=== PATIENT | male | born 1940 | race Caucasian/White ===

== ENCOUNTER → 2023-10-14 | Emergency (ER) | payer OTHER, BC ==
[2023-10-14 17:04] LABS: Specific Gravity 1.009 (1.005-1.030); Urine Bacteria None Seen /HPF (<20); Urine Bilirubin NEGATIVE (Negative); Urine Blood Negative (Negative); Urine Clarity Clear (Clear); Urine Color Light-Yellow (Yellow); Urine Glucose NEGATIVE (Negative); Urine Mucus Slight /HPF (None Seen); Urine Protein NEGATIVE (Negative); Urine RBC None Seen /HPF (None Seen); Urine Urobilinogen Normal (Normal); Urine pH 7.5 (5.0-7.0)
[2023-10-14 17:21] LABS: Magnesium 2.5 mg/dL (1.6-2.4); Potassium 3.9 mEq/L (3.5-5.1); Troponin High Sensitivity 7.4 pg/mL (<58.9)
[2023-10-14 17:23] LABS: Absolute Lymphocytes (CBC) 1.6 K/uL (0.7-4.9); Lymphocytes % 29.2 % (15.3-44.8); MCV 90.8 fL (80-100); MPV 8.6 fL (7.6-11.3); Platelets 217 thou/uL (152-406); RBC Red Blood Cell Count 4.73 M/uL (4.33-5.43)
--- NOTE | 2023-10-14 17:31 | ER ---
Nurse's Notes [facility] Name: Edmundo Carrasco Age: 83 yrs Sex: Male : 1940 Arrival Date: 10/14/2023 Time: 16:07 Bed 3 Private MD: Diagnosis: Hypertensive heart disease without heart failure Presentation: 10/14 16:21 Chief complaint: Patient states: high blood pressure today, took bp meds and even took ko1 an extra dose. Has an appt with Cardiology for nuclear stress test on . Coronavirus screen: At this time, the client does not indicate any symptoms associated with coronavirus-19. Ebola Screen: No symptoms or risks identified at this time. Initial Sepsis Screen: Does the patient meet any 2 criteria? No. Patient's initial sepsis screen is negative. Does the patient have a suspected source of infection? No. Patient's initial sepsis screen is negative. Risk Assessment: Do you want to hurt yourself or someone else? Patient reports no desire to harm self or others. Onset of symptoms was October 14, 2023. 16:21 Method Of Arrival: Ambulatory ko1 16:21 Acuity: JENNIFER 3 ko1 Triage Assessment: 16:25 General: Appears in no apparent distress. comfortable, Behavior is calm, cooperative, ko1 appropriate for age. Pain: Denies pain. 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 - Social history:: Smoking status: Patient denies any tobacco usage or history of. Screenin:[address] [facility] ED Fall Risk Assessment (Adult) History of falling in the last 3 months, kc6 including since admission No falls in past 3 months (0 pts) Confusion or Disorientation No (0 pts) Intoxicated or Sedated No (0 pts) Impaired Gait No (0 pts) Mobility Assist Device Used No (0 pt) Altered Elimination No (0 pt) Score/Fall Risk Level 0 - 2 = Low Risk. Abuse screen: Denies threats or abuse. Denies injuries from another. Nutritional screening: No deficits noted. Tuberculosis screening: No symptoms or risk factors identified. Assessment: 16:57 General: Appears in no apparent distress. comfortable, well groomed, well developed, kc6 Behavior is calm, cooperative, appropriate for age. Pain: Denies pain. Neuro: Level of Consciousness is awake, alert, obeys commands, Oriented to person, place, time, situation, Appropriate for age. Cardiovascular: Denies chest pain, Heart tones S1 S2 present Capillary refill < 3 seconds Rhythm is junctional rhythm with unifocal PVCs. Respiratory: Airway is patent Trachea midline Respiratory effort is even, unlabored, Respiratory pattern is regular, symmetrical, Denies shortness of breath. GI: No signs and/or symptoms were reported involving the gastrointestinal system. : No signs and/or symptoms were reported regarding the genitourinary system. EENT: No signs and/or symptoms were reported regarding the EENT system. Derm: No signs and/or symptoms reported regarding the dermatologic system. Skin is intact, is healthy with good turgor, Skin is pink, warm \T\ dry. Musculoskeletal: No signs and/or symptoms reported regarding the musculoskeletal system. Circulation, motion, and sensation intact. Capillary refill < 3 seconds, Range of motion: intact in all extremities. Vital Signs: 16:21 BP 174 / 85; Pulse 86; Resp 18; Temp 97; Pulse Ox 99% ; ko1 16:58 BP 144 / 77; Pulse 68; Resp 16 S; Pulse Ox 99% on R/A; kc6 Vitals: 16:58 Cardiac Rhythm Assessment Junctional rhythm W/unifocal PVC's. kc6 ED Course: 16:10 Patient arrived in ED. rg4 16:16 Yonis Pelaez PA is [facility]. cp 16:16 Yonis Garsia MD is Attending Physician. cp 16:25 Triage completed. ko1 16:25 Arm band placed on right wrist. Patient placed in an exam room, on a stretcher, on ko1 oxygen, on school lunch monitor, on pulse oximetry, Patient notified of wait time. 16:37 Naomi Jackson, DANISH is Primary Nurse. ph 16:57 Patient has correct armband on for positive identification. Placed in gown. Bed in low kc6 position. Call light in reach. Side rails up X 1. Adult w/ patient. Client placed on continuous cardiac and pulse oximetry monitoring. NIBP monitoring applied. ekg monitor tech on. 16:57 Inserted saline lock: 20 gauge in right antecubital area, using aseptic technique. kc6 Blood collected. Patient maintains SpO2 saturation greater than 95% on room air. 17:45 No provider procedures requiring assistance completed. IV discontinued, intact, ph bleeding controlled, No redness/swelling at site. Pressure dressing applied. Administered Medications: No medications were administered Medication: 17:31 VIS not applicable for this client. ph Outcome: 17:31 Discharge ordered by MD. cp 17:45 Discharged to home ambulatory, with significant other, ph 17:45 Condition: good 17:45 Discharge instructions given to patient, significant other, Instructed on discharge instructions, follow up and referral plans. medication usage, Demonstrated understanding of instructions, follow-up care, medications, Prescriptions given X 1, 17:46 Patient left the ED. ph Signatures: Naomi Jackson RN RN ph Yonis Pelaez PA PA cp Garcia, Rubi rg4 Ruby Kim RN RN kc6 Prisca Stover RN RN ko1 Corrections: (The following items were deleted from the chart) 16:28 16:21 Chief complaint: Patient states: high blood pressure today, took bp meds and even ko1 took an extra dose. Has an appt with Cardiology at [place] for nuclear stress test on . ko1
--- NOTE | 2023-10-14 17:31 | EDPHYS ---
Physician Documentation [facility] Name: Edmundo Carrasco Age: 83 yrs Sex: Male : 1940 Arrival Date: 10/14/2023 Time: 16:07 Bed 3 Private MD: ED Physician Yonis Garsia HPI: 10/14 16:30 This 83 yrs old Male presents to ER via Ambulatory with complaints of High Blood cp Pressure. 16:30 The patient has elevated blood pressure and discovered this at home, with a home device.cp 16:30 Onset: The symptoms/episode began/occurred today. cp 16:30 Associated signs and symptoms: Pertinent negatives: chest pain, dizziness, headache, cp lightheadedness, vomiting, weakness. 16:30 Severity of symptoms: At its worst the blood pressure was 190 mm Hg. cp 16:30 Patient reports past prescribed blood pressure medications were stopped due to blood cp pressure becoming too lw. Recently started on Lisinopril 10 mg daily. Took another tablet of 10 mg before coming to ED today. 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 - Social history:: Smoking status: Patient denies any tobacco usage or history of. ROS: 16:35 Constitutional: Negative for body aches, chills, fever, poor PO intake, cp 16:35 Eyes: Negative for injury, pain, redness, and discharge, cp 16:35 ENT: Negative for drainage from ear(s), ear pain, sore throat, difficulty swallowing, difficulty handling secretions, 16:35 Cardiovascular: Negative for chest pain, edema, palpitations, 16:35 Respiratory: Negative for cough, shortness of breath, wheezing, 16:35 Abdomen/GI: Negative for abdominal pain, vomiting, diarrhea, constipation, black/tarry stool, rectal bleeding, 16:35 : Negative for urinary symptoms, 16:35 Neuro: Negative for altered mental status, dizziness, headache, numbness, syncope, tingling, weakness, 16:35 All other systems are negative, Exam: 16:40 Constitutional: The patient appears in no acute distress, alert, awake, comfortable, cp non-diaphoretic, non-toxic, well developed, well nourished, obese, 16:40 Head/Face: Normocephalic, atraumatic. cp 16:40 Eyes: Periorbital structures: appear normal, Conjunctiva: normal, no exudate, no injection, Sclera: no appreciated abnormality, Lids and lashes: appear normal, bilaterally, 16:40 ENT: External ear(s): are unremarkable, Nose: is normal, Mouth: Lips: moist, Oral mucosa: pink and intact, moist, Posterior pharynx: is normal, airway is patent, no erythema, no exudate, 16:40 Neck: ROM/movement: is normal, is supple, without pain, no range of motions limitations, 16:40 Chest/axilla: Inspection: normal, Palpation: is normal, no crepitus, no tenderness, 16:40 Cardiovascular: Rate: normal, Rhythm: regular, Edema: is not appreciated, JVD: is not appreciated, 16:40 Respiratory: the patient does not display signs of respiratory distress, Respirations: normal, no use of accessory muscles, no retractions, labored breathing, is not present, Breath sounds: are clear throughout, no decreased breath sounds, no stridor, no wheezing, 16:40 Abdomen/GI: Inspection: obese Bowel sounds: active, all quadrants, Palpation: abdomen is soft and non-tender, in all quadrants, 16:40 Back: pain, is absent, ROM is normal, 16:40 Neuro: Orientation: to person, place \T\ time. Mentation: is normal, Cerebellar function: is grossly normal, Motor: moves all fours, strength is normal, Sensation: is normal, Gait: is steady, at a normal pace, without difficulty, 16:50 ECG was reviewed by the Attending Physician. cp Vital Signs: 16:21 BP 174 / 85; Pulse 86; Resp 18; Temp 97; Pulse Ox 99% ; ko1 16:58 BP 144 / 77; Pulse 68; Resp 16 S; Pulse Ox 99% on R/A; kc6 MDM: 16:29 Patient medically screened. dunia 17:30 Data reviewed: vital signs, nurses notes, lab test result(s), EKG, and as a result, I will discharge patient. 17:30 Differential diagnosis: hypertensive crisis, Malignant HTN, CVA, intracerebral cp hemorrhage, acute MD. Counseling: I had a detailed discussion with the patient and/or guardian regarding the historical points, exam findings, and any diagnostic results supporting the discharge/admit diagnosis, lab results, the need for outpatient follow up, for definitive care, a commissary officer, a family practitioner, to return to the emergency department if symptoms worsen or persist or if there are any questions or concerns that arise at home. 10/14 16:31 Order name: Basic Metabolic Panel; Complete Time: 17:26 cp 10/14 17:26 Interpretation: Normal except: CL 108; GLUC 108; GFR 65. cp 10/14 16:31 Order name: CBC with Diff; Complete Time: 17:26 cp 10/14 17:27 Interpretation: Reviewed. cp 10/14 16:31 Order name: Magnesium; Complete Time: 17:26 cp 10/14 17:26 Interpretation: Reviewed. cp 10/14 16:31 Order name: Troponin HS; Complete Time: 17:26 cp 10/14 17:27 Interpretation: Reviewed. cp 10/14 16:31 Order name: Urinalysis W/Microscopic; Complete Time: 17:26 cp 10/14 17:27 Interpretation: Normal except: UPH 7.5. cp 02 16:31 Order name: EKG; Complete Time: 16:31 cp 10/14 16:31 Order name: Cardiac monitoring; Complete Time: 16:56 cp 10/14 16:31 Order name: EKG - Nurse/Tech; Complete Time: 16:56 cp 10/14 16:31 Order name: IV Saline Lock; Complete Time: 16:56 cp 10/14 16:31 Order name: Labs collected and sent; Complete Time: 16:57 cp 10/14 16:31 Order name: O2 Per Protocol; Complete Time: 16:57 cp 10/14 16:31 Order name: O2 Sat Monitoring; Complete Time: 16:57 cp EC:50 Rate is 72 beats/min. Rhythm is regular. QRS interval is normal. QT interval is normal. cp T waves are Inverted in leads III, aVR. Interpreted by me. Reviewed by me. Administered Medications: No medications were administered Disposition Summary: 10/14/23 17:31 Discharge Ordered Notes: Location: Home cp Problem: chronic cp Symptoms: have improved cp Condition: Stable cp Diagnosis - Hypertensive heart disease without heart failure cp Followup: cp - With: Private Physician - When: 1 week - Reason: Recheck today's complaints Discharge Instructions: - Discharge Summary Sheet cp - Hypertension, Adult cp - Aspirin and Your Heart cp - Form - Blood Pressure Record Sheet cp - How to Take Your Blood Pressure cp Forms: - Medication Reconciliation Form cp - Thank You Letter cp - Antibiotic Education cp - Prescription Opioid Use cp - Patient Portal Instructions cp - Leadership Thank You Letter cp Prescriptions: - Lisinopril 20 mg Oral tablet - take 1 tablet ORAL route once daily; 30 tablet; Refills: 0, Product Selection cp Permitted Signatures: Dispatcher [employer] EDYonis Henderson MD MD cha Page, Corey, PA PA Prisca Diaz, RN RN ko1
[2023-10-15 10:54] VITALS: BP 144/77; TEMP 97; O2SAT 99
--- NOTE | 2023-10-15 12:56 | EKG ---
Test Date: 2023-10-14 Test Time: 16:46:59 Learning Officer: FRITZ MEASUREMENT RESULTS: Intervals: Rate: 72 NC: QRSD: 80 QT: 392 QTc: 429 Joshua: P: NC: QRS: 0 T: -10 INTERPRETIVE STATEMENTS: Accelerated Junctional rhythm Abnormal ECG Compared to ECG 09/10/2023 17:37:03 Accelerated junctional rhythm now present Sinus rhythm no longer present Electronically Signed On 10-15-23 12:52:46 [employer] by Jerald Oneil
== END ==
LOC: ER 16:07
DX: I11.9 Hypertensive heart disease without heart failure (principal); Z95.818 Presence of other cardiac implants and grafts
CPT/HCPCS: 36415; 80048; 81001; 83735; 84484; 85025; 93005

== ENCOUNTER → 2023-10-21 | Emergency (ER) | payer OTHER, BC ==
[~2023-10-21] MED LIST: CEFTRIAXONE 1000 MG/VIAL ONE; NA CHLORIDE 0.9% 50 ML ONE
[2023-10-21 08:37] LABS: Absolute Lymphocytes (CBC) 0.8 K/uL (0.7-4.9); Hematocrit 44.9 % (39.6-49.0); Lymphocytes % 14.2 % (15.3-44.8); MCV 91.1 fL (80-100); Platelets 212 thou/uL (152-406); RBC Red Blood Cell Count 4.93 M/uL (4.33-5.43)
[2023-10-21 08:43] LABS: Protime INR 1.13
[2023-10-21 08:56] LABS: Albumin 2.8 g/dL (3.4-5.0); Potassium 3.7 mEq/L (3.5-5.1); Protein, Total 7.1 g/dL (6.4-8.2)
[2023-10-21 08:56] LABS: Urine Bacteria <20 /HPF (<20); Urine Mucus 1+ /HPF (None Seen); Urine RBC >50 /HPF (None Seen)
[2023-10-21 08:57] LABS: Specific Gravity 1.024 (1.005-1.030); Urine Bilirubin NEGATIVE (Negative); Urine Blood 3+ (Negative); Urine Clarity Turbid (Clear); Urine Color Yellow (Yellow); Urine Glucose NEGATIVE (Negative); Urine Protein 2+ (Negative); Urine Urobilinogen 1+ (Normal)
--- NOTE | 2023-10-21 09:39 | RAD REPORT ---
EXAM DESCRIPTION: CT - Abdomen Pelvis W Contrast - 10/21/2023 8:51 am CLINICAL HISTORY: HEMATURIA COMPARISON: No comparisons TECHNIQUE: Thin cut axial CT imaging of the abdomen and pelvis was performed following intravenous a dministration of 100 mL Isovue 300. Multiplanar reformats were generated and reviewed. All CT scans are performed using dose optimization technique as appropriate and may include automated exposure control or mA/KV adjustment according to patient size. FINDINGS: No suspicious findings in the lung bases. The liver demonstrates a 13 mm cyst near the hilum. Spleen, adrenal glands, and pancreas show no susp icious findings. Gallbladder shows layering mildly hyperdense material near the neck, may suggest slu dge or noncalcified calculi. Symmetric renal function is seen with no hydronephrosis or suspicious renal mass. Small calcification s at the left lower renal pole, suggesting calculi the largest measuring 5 mm. Some of these may repr esent parenchymal calcifications. No dilated bowel loops or bowel wall thickening. No free air, free fluid or inflammatory stranding. N o hernia, mass or bulky lymphadenopathy. Urinary bladder is decompressed limiting evaluation. Allowing for this, a degree of wall thickening, adventitial fat stranding, and mucosal hyperenhancement is seen throughout the bladder wall. Superior endplate compression deformity at L3 with moderate disc height loss, favored to be chronic. IMPRESSION: Although decompression of the urinary bladder limits evaluation, wall thickening, baptism itial fat stranding, mucosal hyperenhancement is not throughout the wall, concerning for ongoing cyst itis. Please correlate clinically. Nonobstructing small left lower renal calculi up to 5 mm, with additional foci of calcification which may be parenchymal. Gallbladder sludge versus noncalcified small stones accumulating dependently. Other incidental findings as above.
--- NOTE | 2023-10-21 09:48 | ER ---
Nurse's Notes [facility] Name: Edmundo Carrasco Age: 83 yrs Sex: Male : 1940 Arrival Date: 10/21/2023 Time: 08:13 Bed 4 Private MD: Diagnosis: Acute cystitis with hematuria;Calculus of kidney Presentation: 10/21 08:19 Chief complaint: Patient states: right flank pain x 3-4 days ago, hematuria today, hx aa5 of kidney stones. 08:19 Onset of symptoms was October 21, 2023. aa5 08:19 Acuity: JENNIFER 3 aa5 08:19 Method Of Arrival: Ambulatory aa5 08:19 Coronavirus screen: At this time, the client does not indicate any symptoms associated aa5 with coronavirus-19. Ebola Screen: Patient denies travel to an Ebola-affected area in the 21 days before illness onset. Initial Sepsis Screen: Does the patient meet any 2 criteria? No. Patient's initial sepsis screen is negative. Does the patient have a suspected source of infection? No. Patient's initial sepsis screen is negative. Risk Assessment: Do you want to hurt yourself or someone else? Patient reports no desire to harm self or others. Historical: - Allergies: 08:20 No Known Allergies; aa5 - PMHx: 08:20 DVT; Hypertension; PE; Kidney stones; aa5 - PSHx: 08:20 cardiac stents X 5; knee replacement - left; aa5 - Immunization history:: Adult Immunizations unknown. - Social history:: Smoking status: Patient denies any tobacco usage or history of. Screenin:35 [facility] ED Fall Risk Assessment (Adult) History of falling in the last 3 months, ph including since admission No falls in past 3 months (0 pts) Score/Fall Risk Level 0 - 2 = Low Risk Oriented to surroundings, Maintained a safe environment, Provided non-skid footwear, Hourly rounding (assess needs \T\ fall precautionary measures) done. Abuse screen: Denies threats or abuse. Denies injuries from another. Nutritional screening: No deficits noted. Tuberculosis screening: No symptoms or risk factors identified. Assessment: 08:33 General: Appears in no apparent distress. comfortable, Behavior is calm, cooperative, ph appropriate for age, Denies fever, feeling ill. Pain: Complains of pain in with urination. Neuro: Level of Consciousness is awake, alert, obeys commands, Oriented to person, place, time, situation. Cardiovascular: Capillary refill < 3 seconds in bilateral fingers Patient's skin is warm and dry. Respiratory: Airway is patent Respiratory effort is even, unlabored. GI: Abdomen is non-distended, Abd is soft and non tender X 4 quads. Reports. GI: Patient currently denies abdominal pain, nausea, vomiting. : Reports pain with urination, blood in urine. Derm: Skin is pink, warm \T\ dry. 09:55 Reassessment: D/C pending completion of IV antibiotics. ph Vital Signs: 08:19 BP 149 / 75; Pulse 80; Resp 16 S; Temp 97.8(O); Pulse Ox 98% on R/A; Weight 122.47 kg aa5 (R); Height 6 ft. 0 in. (R); 10:00 BP 138 / 78; Pulse 72; Resp 18; Temp 97.8; Pulse Ox 99% on R/A; ph 08:19 Body Mass Index 36.62 (122.47 kg, 182.88 cm) aa5 ED Course: 08:16 Patient arrived in ED. mg5 08:17 Ashtyn Oliva PA-C is PHCP. sb4 08:17 Gilson Williamson DO is Attending Physician. sb4 08:19 Naomi Jackson, RN is Primary Nurse. ph 08:19 Arm band placed on. aa5 08:29 Triage completed. aa5 08:31 Ptt, Activated Sent. ko1 08:31 PT-INR Sent. ko1 08:31 CBC with Diff Sent. ko1 08:31 CMP Sent. ko1 08:33 Initial lab(s) drawn, by nc, sent to lab. Inserted saline lock: 20 gauge in right ph antecubital area, using aseptic technique. Blood collected. 08:36 Patient has correct armband on for positive identification. Bed in low position. Call ph light in reach. Side rails up X2. Pulse ox on. NIBP on. Door closed. Noise minimized. Warm blanket given. 08:36 PT-INR Sent. ph 08:36 Ptt, Activated Sent. ph 08:36 CBC with Diff Sent. ph 08:36 CMP Sent. ph 08:53 CT Abd/Pelvis - IV Contrast Only In Process Unspecified. EDMS 09:47 Juan Aguayo MD is Referral Physician. sb4 Administered Medications: 09:55 Drug: Rocephin IV 1 grams IV at calculated rate once; Given slow IV push per pharmacy ph instructions Route: IV; Rate: calculated rate; Site: right antecubital; 10:23 Follow up: Response: No adverse reaction; IV Status: Completed infusion ph Medication: 08:35 VIS not applicable for this client. ph Outcome: 09:48 Discharge ordered by . sb4 10:24 Patient left the ED. ph Signatures: Dispatcher [employer] EDMT Isha Rodriguez RN RN aa5 Naomi Jackson RN RN ph Oliver, Kathy, RN RN ko1 Ashtyn Oliva, PA-C PA-C sb4 Latia Guzman mg5
--- NOTE | 2023-10-21 09:48 | EDPHYS ---
Physician Documentation [facility] Name: Edmundo Carrasco Age: 83 yrs Sex: Male : 1940 Arrival Date: 10/21/2023 Time: 08:13 Bed 4 Private MD: ED Physician Gilson Williamson HPI: 10/21 08:26 This 83 yrs old Male presents to ER via Unassigned with complaints of hematuria. sb4 08:26 The patient presents with urinary symptoms, hematuria, penile pain. Onset: The sb4 symptoms/episode began/occurred 3 day(s) ago. The patient has experienced a previous episode. right flank pain Saturday, resolved now. hematuria and penile pain began this morning. on blood thinners. history of kidney stones. Historical: - Allergies: 08:20 No Known Allergies; aa5 - PMHx: 08:20 DVT; Hypertension; PE; Kidney stones; aa5 - PSHx: 08:20 cardiac stents X 5; knee replacement - left; aa5 - Immunization history:: Adult Immunizations unknown. - Social history:: Smoking status: Patient denies any tobacco usage or history of. ROS: 08:26 Constitutional: Negative for fever, chills, and weight loss, sb4 08:26 : Positive for hematuria, penile pain, 08:26 All other systems are negative, Exam: 08:26 Constitutional: This is a well developed, well nourished patient who is awake, alert, sb4 and in no acute distress. Head/Face: Normocephalic, atraumatic. Eyes: Extra-ocular motions intact. Periorbital areas with no swelling, redness, or edema. ENT: Mucous membranes moist. Cardiovascular: Regular rate and rhythm with a normal S1 and S2. Respiratory: Lungs have equal breath sounds bilaterally, clear to auscultation and percussion. No rales, rhonchi or wheezes noted. No increased work of breathing, no retractions or nasal flaring. Abdomen/GI: Soft, non-tender, no distension. Skin: Warm, dry with normal turgor. Normal color with no rashes, no lesions, and no evidence of cellulitis. MS/ Extremity: Pulses equal, no cyanosis. Neurovascular intact. Full, normal range of motion. Vital Signs: 08:19 BP 149 / 75; Pulse 80; Resp 16 S; Temp 97.8(O); Pulse Ox 98% on R/A; Weight 122.47 kg aa5 (R); Height 6 ft. 0 in. (R); 10:00 BP 138 / 78; Pulse 72; Resp 18; Temp 97.8; Pulse Ox 99% on R/A; ph 08:19 Body Mass Index 36.62 (122.47 kg, 182.88 cm) aa5 MDM: 08:20 Patient medically screened. sb4 08:28 Differential diagnosis: UTI, prostatitis, urethritis, nephrolithiasis. sb4 09:46 Data reviewed: vital signs, nurses notes, lab test result(s), radiologic studies, and sb4 as a result, I will discharge patient. Historians other than the Patient: Spouse/Significant Other: . Care significantly affected by the following chronic conditions: Hypertension. Counseling: I had a detailed discussion with the patient and/or guardian regarding the historical points, exam findings, and any diagnostic results supporting the discharge/admit diagnosis, lab results, radiology results, the need for outpatient follow up, a urologist, to return to the emergency department if symptoms worsen or persist or if there are any questions or concerns that arise at home. 10/21 08:20 Order name: UAM; Complete Time: 09:10 sb4 10/21 08:26 Order name: CBC with Diff; Complete Time: 08:39 sb4 10/21 08:26 Order name: CMP; Complete Time: 08:56 sb4 10/21 08:26 Order name: PT-INR; Complete Time: 08:44 sb4 10/21 08:26 Order name: Ptt, Activated; Complete Time: 08:44 sb4 10/21 09:07 Order name: Urine Culture EDMS 10/21 08:26 Order name: CT Abd/Pelvis - IV Contrast Only; Complete Time: 09:43 sb4 10/21 08:26 Order name: IV Saline Lock; Complete Time: 08:31 sb4 10/21 08:26 Order name: Labs collected and sent; Complete Time: 08:31 sb4 Administered Medications: 09:55 Drug: Rocephin IV 1 grams IV at calculated rate once; Given slow IV push per pharmacy ph instructions Route: IV; Rate: calculated rate; Site: right antecubital; 10:23 Follow up: Response: No adverse reaction; IV Status: Completed infusion ph Disposition: 16:56 I was immediately available on-site in the Emergency Department for consultation in the ms3 care of the patient. Disposition Summary: 10/21/23 09:48 Discharge Ordered Notes: Location: Home sb4 Problem: new sb4 Symptoms: are unchanged sb4 Condition: Stable sb4 Diagnosis - Acute cystitis with hematuria sb4 - Calculus of kidney sb4 Followup: sb4 - With: Juan Aguayo MD - When: 1 week - Reason: Recheck today's complaints, Re-evaluation by your physician Discharge Instructions: - Discharge Summary Sheet sb4 - Urinary Tract Infection, Adult sb4 - Kidney Stones, [id number] sb4 Forms: - Medication Reconciliation Form sb4 - Thank You Letter sb4 - Antibiotic Education sb4 - Prescription Opioid Use sb4 - Patient Portal Instructions sb4 - Leadership Thank You Letter sb4 Prescriptions: - Cipro 500 mg Oral Tablet - take 1 tablet ORAL route every 12 hours for 7 days; 14 tablet; Refills: 0, sb4 Product Selection Permitted - Tramadol 50 mg Oral Tablet - take 1 tablet ORAL route every 8 hours as needed; 12 tablet; Refills: 0, sb4 Product Selection Permitted Signatures: Dispatcher [employer] Isha Mondragon RN RN aa5 Naomi Jackson RN RN Gilson Williamson DO DO ms3 Ashtyn Oliva PA-C PA-C sb4
[2023-10-21 10:32] VITALS: BP 138/78; TEMP 97.8; O2SAT 99
== END ==
LOC: ER 08:13
DX: N30.01 Acute cystitis with hematuria (principal); N20.0 Calculus of kidney; Z87.442 Personal history of urinary calculi; Z95.818 Presence of other cardiac implants and grafts; Z79.01 Long term (current) use of anticoagulants
CPT/HCPCS: 87088; 85025; 81001; 87086; 36415; 85610; 85730; 80053; 74177; Q9967; J0696

== ENCOUNTER → 2023-11-28 | Emergency (ER) | payer OTHER, BC ==
[~2023-11-28] MED LIST changes: -CEFTRIAXONE 1000 MG/VIAL ONE; -NA CHLORIDE 0.9% 50 ML ONE; +predniSONE 20 MG TAB ONE
--- NOTE | 2023-11-28 10:50 | RAD REPORT ---
EXAM DESCRIPTION: CT - Spine Lumbar Wo Con - 11/28/2023 10:40 am CLINICAL HISTORY: left radiculopathy COMPARISON: Abdomen Pelvis W Contrast dated 10/21/2023 TECHNIQUE: Axial noncontrast CT imaging of the lumbar spine was performed with coronal and sagittal re-formatted images. All CT scans are performed using dose optimization technique as appropriate and may include automated exposure control or mA/KV adjustment according to patient size. FINDINGS: L1 compression fracture with approximately 40% loss of height. There is increased inferior endplate deformity compared with 10/21/2023 consistent with an acute or subacute compression fractur e. No significant bony retropulsion identified. Multilevel degenerate disc disease is present. Note t hat there is probably moderate if not severe central spinal stenosis at L3-4, L4-5, and L5-S1. . Neur al foraminal narrowing is of varying degrees at these levels as well but most pronounced on the left at L4-5 and on the right at L5-S1. Chronic L4 compression fracture with up to 60% loss of height centrally. IMPRESSION: Compared with 10/21/2023, new L1 compression fracture with approximately 40% maximal los s of height. No bony retropulsion. Remote L3 compression fracture. 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
--- NOTE | 2023-11-28 11:04 | ER ---
Nurse's Notes [facility] Name: Edmundo Carrasco Age: 83 yrs Sex: Male : 1940 Arrival Date: 11/28/2023 Time: 10:01 Bed 2 Private MD: Diagnosis: Lumbar compression fracture, left lower extremity radiculopathy Presentation: 11/27 10:05 Chief complaint: Patient states: lower back pain, greater to left low back that began aa5 2-3 days ago. Pt denies known injury. 10:05 Acuity: JENNIFER 3 aa5 10:05 Coronavirus screen: At this time, the client does not indicate any symptoms associated aa5 with coronavirus-19. Ebola Screen: Patient denies travel to an Ebola-affected area in the 21 days before illness onset. Initial Sepsis Screen: Does the patient meet any 2 criteria? No. Patient's initial sepsis screen is negative. Does the patient have a suspected source of infection? No. Patient's initial sepsis screen is negative. Risk Assessment: Do you want to hurt yourself or someone else? Patient reports no desire to harm self or others. Onset of symptoms was November 2023. 10:05 Method Of Arrival: Wheelchair aa5 Historical: - Allergies: 10:14 No Known Allergies; aa5 - PMHx: 10:14 DVT; Hypertension; Kidney stones; PE; aa5 - PSHx: 10:14 cardiac stents X 5; knee replacement - left; aa5 - Immunization history:: Adult Immunizations unknown. - Social history:: Smoking status: Patient denies any tobacco usage or history of. Screenin:35 [facility] ED Fall Risk Assessment (Adult) History of falling in the last 3 months, ld1 including since admission No falls in past 3 months (0 pts). Abuse screen: Denies threats or abuse. Denies injuries from another. Nutritional screening: No deficits noted. Tuberculosis screening: No symptoms or risk factors identified. Assessment: 11:34 General: Appears in no apparent distress. comfortable, Behavior is calm, cooperative, ld1 appropriate for age. Pain: Complains of pain in back Pain does not radiate. Pain currently is 8 out of 10 on a pain scale. Quality of pain is described as throbbing, Pain began suddenly. Neuro: Level of Consciousness is awake, alert, obeys commands, Oriented to person, place, time, situation. Cardiovascular: Capillary refill < 3 seconds Patient's skin is warm and dry. Respiratory: Airway is patent Respiratory effort is even, unlabored. GI: Abdomen is flat, non-distended. : No signs and/or symptoms were reported regarding the genitourinary system. EENT: No signs and/or symptoms were reported regarding the EENT system. Derm: No signs and/or symptoms reported regarding the dermatologic system. Musculoskeletal: No signs and/or symptoms reported regarding the musculoskeletal system. Vital Signs: 10:05 BP 143 / 73; Pulse 77; Resp 16 S; Temp 97.8(TE); Pulse Ox 94% on R/A; Weight 122.47 kg aa5 (R); Height 6 ft. 0 in. (R); 11:34 BP 136 / 77; Pulse 72; Resp 18; Pulse Ox 95% on R/A; ld1 10:05 Body Mass Index 36.62 (122.47 kg, 182.88 cm) aa5 ED Course: 10:04 Patient arrived in ED. mg5 10:05 Arm band placed on. aa5 10:11 Marcie Alfaro MD is Attending Physician. sp3 10:15 Triage completed. aa5 10:38 CT Lumbar Spine Wo Con In Process Unspecified. EDMS 11:34 Karen Williamson, DANISH is Primary Nurse. ld1 11:35 Patient has correct armband on for positive identification. Placed in gown. Bed in low ld1 position. Call light in reach. Side rails up X2. monitoring and evaluation advisor on. Pulse ox on. NIBP on. Door closed. Noise minimized. Warm blanket given. 11:35 Provided Education on: Follow up instructions. ld1 11:35 No provider procedures requiring assistance completed. Patient did not have IV access ld1 during this emergency room visit. Administered Medications: No medications were administered Medication: 11:35 VIS not applicable for this client. ld1 Outcome: 11:04 Discharge ordered by . sp3 11:35 Discharged to home ambulatory, with family, ld1 11:35 Condition: stable 11:35 Discharge instructions given to patient, family, Instructed on discharge instructions, follow up and referral plans. Demonstrated understanding of instructions, follow-up care, 11:36 Patient left the ED. ld1 Signatures: Dispatcher [employer] EDMS Hector Rodriguezri, RN RN aa5 Karen Williamson RN RN ld1 Marcie Alfaro MD MD sp3 Latia Guzman mg5
--- NOTE | 2023-11-28 11:04 | EDPHYS ---
Physician Documentation [facility] Name: Edmundo Carrasco Age: 83 yrs Sex: Male : 1940 Arrival Date: 11/28/2023 Time: 10: Bed 2 Private MD: ED Physician Marcie Alfaro HPI: 11/27 11:00 This 83 yrs old Male presents to ER via Wheelchair with complaints of Back Pain. sp3 11:00 83-year-old male with history of hypertension, DVT, prior kidney stones now presents to [facility] the ED with chief complaint low back pain with radiculopathy of the left lower extremity posteriorly. Patient states this is new over the last 4 to 5 days. He denies any trauma or fall. Patient was here last month for kidney stone and he states that this is very different than that pain. He denies any hematuria, urinary frequency, urinary discharge, dysuria or any other symptoms. He also denies on review of systems, headache, fever, URI symptoms, chest pain, shortness of breath, upper back pain, abdominal pain nausea, vomiting, diarrhea, syncope, near syncope, any other neurological symptoms other than the left lower extremity, inability to ambulate, or any other signs or symptoms on ROS at this time. Patient states that it is worse when he stands up and better when he lays down.. Historical: - Allergies: 10:14 No Known Allergies; aa5 - PMHx: 10:14 DVT; Hypertension; Kidney stones; PE; aa5 - PSHx: 10:14 cardiac stents X 5; knee replacement - left; aa5 - Immunization history:: Adult Immunizations unknown. - Social history:: Smoking status: Patient denies any tobacco usage or history of. ROS: 11:01 Constitutional: Negative for fever, chills, and weight loss, Eyes: Negative for injury, sp3 pain, redness, and discharge, ENT: Negative for injury, pain, and discharge, Neck: Negative for injury, pain, and swelling, Cardiovascular: Negative for chest pain, palpitations, and edema, Respiratory: Negative for shortness of breath, cough, wheezing, and pleuritic chest pain, Abdomen/GI: Negative for abdominal pain, nausea, vomiting, diarrhea, and constipation, : Negative for injury, bleeding, discharge, and swelling, Skin: Negative for injury, rash, and discoloration, Psych: Negative for depression, anxiety, suicide ideation, homicidal ideation, and hallucinations, Allergy/Immunology: Negative for hives, rash, and allergies, Endocrine: Negative for neck swelling, polydipsia, polyuria, polyphagia, and marked weight changes, 11:01 All other systems are negative, Exam: 11:01 Constitutional: This is a well developed, well nourished patient who is awake, alert, sp3 and in no acute distress. Head/Face: Normocephalic, atraumatic. Eyes: Pupils equal round and reactive to light, extra-ocular motions intact. Lids and lashes normal. Conjunctiva and sclera are non-icteric and not injected. Cornea within normal limits. Periorbital areas with no swelling, redness, or edema. Neck: Trachea midline, no thyromegaly or masses palpated, and no cervical lymphadenopathy. Supple, full range of motion without nuchal rigidity, or vertebral point tenderness. No Meningismus. Chest/axilla: Normal chest wall appearance and motion. Nontender with no deformity. No lesions are appreciated. Cardiovascular: Regular rate and rhythm with a normal S1 and S2. No gallops, murmurs, or rubs. Normal PMI, no JVD. No pulse deficits. Respiratory: Lungs have equal breath sounds bilaterally, clear to auscultation and percussion. No rales, rhonchi or wheezes noted. No increased work of breathing, no retractions or nasal flaring. Abdomen/GI: Soft, non-tender, with normal bowel sounds. No distension or tympany. No guarding or rebound. No evidence of tenderness throughout. Back: No spinal tenderness. No costovertebral tenderness. Full range of motion. Skin: Warm, dry with normal turgor. Normal color with no rashes, no lesions, and no evidence of cellulitis. Neuro: Awake and alert, GCS 15, oriented to person, place, time, and situation. Cranial nerves II-XII grossly intact. Motor strength 5/5 in all extremities. Sensory grossly intact. Cerebellar exam normal. Normal gait. Psych: Awake, alert, with orientation to person, place and time. Behavior, mood, and affect are within normal limits. 11:01 Musculoskeletal/extremity: Neurovascular exam normal bilateral lower extremities. No pain on straight leg raise.. Vital Signs: 10:05 BP 143 / 73; Pulse 77; Resp 16 S; Temp 97.8(TE); Pulse Ox 94% on R/A; Weight 122.47 kg aa5 (R); Height 6 ft. 0 in. (R); 11:34 BP 136 / 77; Pulse 72; Resp 18; Pulse Ox 95% on R/A; ld1 10:05 Body Mass Index 36.62 (122.47 kg, 182.88 cm) aa5 MDM: 10:11 Patient medically screened. sp3 11:02 Data reviewed: vital signs, nurses notes, radiologic studies. ED course: 83-year-old sp3 male with low back pain. Consider lumbar disc disease versus fracture versus sciatica versus other. MRI not possible however CT scan of the lumbar spine demonstrates lumbar compression fracture which is new compared to his CT abdomen pelvis performed last month. There is about 40% loss of height. This likely is at least a contributing factor to his symptoms. Patient has an outpatient appointment with spinal orthopedics set up for December 29. She will patient has hydrocodone and NSAID at home which she has been taking on and off. At this time we will send him home with CT scan results as well as the disc and have him keep that appointment for follow-up. No cord compression or other spinal cord pathology suspected at this time.. 11/27 10:24 Order name: CT Lumbar Spine Wo Con; Complete Time: 10:57 sp3 Administered Medications: No medications were administered Disposition Summary: 11/28/23 11:04 Discharge Ordered Notes: Location: Home sp3 Condition: Stable sp3 Diagnosis - Lumbar compression fracture, left lower extremity radiculopathy sp3 Followup: sp3 - With: Private Physician - When: Upon discharge from the Emergency Department - Reason: Recheck today's complaints, Continuance of care Discharge Instructions: - Discharge Summary Sheet sp3 - Spinal Compression Fracture sp3 Forms: - Medication Reconciliation Form sp3 - Thank You Letter sp3 - Antibiotic Education sp3 - Prescription Opioid Use sp3 - Patient Portal Instructions sp3 - Leadership Thank You Letter sp3 Signatures: Dispatcher [employer] EDIsha Olguin RN RN aa5 Marcie Alfaro MD MD sp3 Corrections: (The following items were deleted from the chart) 11:01 11:00 83-year-old male with history of hypertension, DVT, prior kidney stones now sp3 presents to the ED with chief complaint low back pain with radiculopathy of the left lower extremity posteriorly. Patient states this is new over the last 4 to 5 days. He denies any trauma or fall. Patient was here last month for kidney stone and he states that this is very different than that pain. He denies any hematuria, urinary frequency, urinary discharge, dysuria or any other symptoms. He also denies on review of systems, headache, fever, URI symptoms, chest pain, shortness of breath, upper back pain, abdominal pain nausea, vomiting, diarrhea, syncope, near syncope, any other neurological symptoms other than the left lower extremity, inability to ambulate, or any other signs or symptoms on ROS at this time.. sp3
[2023-11-28 11:55] VITALS: BP 136/77; TEMP 97.8; O2SAT 95
== END ==
LOC: ER 10:01
DX: S32.049A Unspecified fracture of fourth lumbar vertebra, initial encounter for closed fracture (principal); M54.16 Radiculopathy, lumbar region; Z95.818 Presence of other cardiac implants and grafts; Z96.652 Presence of left artificial knee joint
CPT/HCPCS: 72131; 99284; J7512